=== PATIENT | female | born 2000 | race Caucasian/White ===

== ENCOUNTER 2025-03-27 20:13 | Emergency (ER) | payer SELFPAY ==
[2025-03-27 20:14] VITALS: BP 152/114; PULSE 134; RESP 15; TEMP 36.8; O2SAT 99; BMI 55.5
--- NOTE | 2025-03-27 21:09 | EX.ED.DYSGE1 ---
HPI History of Present Illness Chief Complaint: Mental Health Informant: patient Onset/Context/Timing Onset: Days Context: Gradual Onset Timing: Continuous Quality: Depressed Location: Generalized Worsened by: Nothing Relieved by: Nothing Narrative Narrative: Patient presents with depression that has been getting worse over the past few days. Patient recently moved here from [place]. Patient states she ran out of her medications. Patient states she feels as though she is not living and that she feels like she is just watching herself. Patient denies any suicidal or homicidal ideations. Patient denies any auditory or visual hallucinations. Patient states she has had a recent upper respiratory infection with cough and rhinorrhea. Patient also admits to some nausea but denies any vomiting. Patient denies any chest pain or shortness of breath. [facility] Medical History (Updated 03/28/25 @ 01:[address] Aj Noble, DO) Bipolar 1 disorder Depression Hypertension PCOS (polycystic ovarian syndrome) Home Medications ?Medication ?Instructions ?Recorded ?Last Taken ?Type oxcarbazepine 600 mg 600 mg PO DAILY #30 tabs 03/28/25 Unknown Rx tablet,extended release 24 hr sulfamethoxazole 800 1 tab PO BID #6 TABLETS 03/28/25 Unknown Rx mg-trimethoprim 160 mg tablet venlafaxine 150 mg tablet,extended 150 mg PO DAILY #30 tabs 03/28/25 Unknown Rx release 24 hr venlafaxine 37.5 mg 37.5 mg PO DAILY #30 caps 03/28/25 Unknown Rx capsule,extended release 24 hr Allergy/AdvReac Type Severity Reaction Status Date / Time No Known Allergies Allergy Verified 03/27/25 20:14 Surgical History no surgical history no surgical history Social History (Updated 03/27/25 @ 21:40 by Tiki Pavon) household members: spouse and family housing: house Smoking Status: Current every day smoker tobacco type: cigarettes ROS ROS ED Constitutional Constitutional ED: Denies chills or fever(s) Eyes Eyes: Denies blurry vision or change in vision ENT ENT ED: Reports rhinorrhea; Denies sore throat Cardiovascular Cardiovascular: Denies chest pain or palpitations Respiratory/Chest Respiratory/Chest: Reports cough; Denies dyspnea Gastrointestinal Gastrointestinal: Reports nausea; Denies vomiting Genitourinary Genitourinary ED: Denies dysuria or hematuria Musculoskeletal Musculoskeletal: Denies back pain or neck pain Integumentary Denies abscess or rash Neurologic Neurologic: Reports headache(s); Denies weakness Psychiatric Psychiatric: Reports depression; Denies suicidal ideation or suicidal thoughts Allergic/Immunologic Allergic/Immunologic ED: Denies mouth swelling or urticaria EXAM Physical Exam Const Vital Signs: 03/27/25 20:14 03/27/25 21:14 03/27/25 21:17 Temperature 98.3 F 98.9 F 98.9 F Temperature Source Oral Oral Oral Pulse Rate 134 H 119 H 117 H Respiratory Rate 15 14 14 Blood Pressure 152/114 H 148/111 H 148/111 H Blood Pressure Mean 126 123 123 Pulse Ox 99 99 99 Oxygen Delivery Method Room Air Room Air Room Air 03/27/25 22:00 03/27/25 23:00 Temperature 98.9 F Temperature Source Oral Pulse Rate 117 H 116 H Respiratory Rate 18 18 Blood Pressure 132/86 H 151/88 H Blood Pressure Mean 101 109 Pulse Ox 99 99 Oxygen Delivery Method Room Air Room Air Positive well nourished and well developed Constitutional Narrative: BMI is 55.5 General Appearance ED: well developed and NAD HEENT Reports moist mucous membranes Neck supple and no JVD Resp normal respiratory effort and clear to auscultation bilaterally Cardio regular rate and regular rhythm GI non-tender and non-distended Palpation: soft Neuro oriented x3, CN's II-XII intact bilaterally and no sensory deficits noted Sensorium / Orientation: alert Motor Exam: strength 5/5 throughout Psych Mood & Affect: depressed MDM MDM MDM Narrative Medical decision making narrative: Differential diagnosis includes pneumonia, bronchitis, viral upper respiratory infection, anemia, electrolyte abnormality, urinary tract infection, depression, and anxiety. CBC will be obtained to assess for leukocytosis and anemia. Basic metabolic profile will be obtained to assess for electrolyte abnormality and renal function. Urinalysis will be obtained to assess for urinary tract infection and hematuria. Serum hCG will be obtained to assess for . Serum alcohol level will be obtained to assess for alcohol intoxication. Urine drug screen will be obtained to assess for substance abuse. Chest x-ray will be obtained to assess for pneumonia and bronchitis. History & Record Review Additional record(s) reviewed:: No prior records Lab Data Attestation: I reviewed the patient's lab results. Lab results narrative: CBC was reviewed. There is a slight leukocytosis of 12.2. The remainder is within normal limits. Basic metabolic profile was reviewed. Glucose was slightly elevated at 140. The remainder is within normal limits. Urinalysis was reviewed. Leukocyte esterase was 500. There are 10-25 white blood cells and 1+ bacteria. Urine drug screen was reviewed and was positive for opiates. Serum alcohol level was reviewed and was less than 10.1. Labs: Laboratory Results - last 24 hr 03/27/25 03/27/25 21:40 22:20 WBC 12.2 H RBC 5.72 H Hgb 11.8 L Hct 39.9 MCV 69.8 L MCH 20.6 L MCHC 29.6 L RDW Std Deviation 38.7 RDW Coeff of Jennifer 15.9 H Plt Count 346 MPV 10.6 Immature Gran % (Auto) 0.400 Neut % (Auto) 74.2 H Lymph % (Auto) 18.5 L [place] % (Auto) 4.3 Eos % (Auto) 2.2 Baso % (Auto) 0.4 Absolute Neuts (auto) 9.0 H Absolute Lymphs (auto) 2.25 Nucleated RBC % 0 Sodium 136 Potassium 4.4 Chloride 101 Carbon Dioxide 22.3 Anion Gap 13 BUN 12 Creatinine 0.84 Estim Creat Clear Calc 175.97 Est GFR (MDRD) Non-Af 99 BUN/Creatinine Ratio 14.1 Glucose 140 H Calcium 9.9 Urine Color Yellow Urine Clarity Sl. Cloudy Urine pH 6.0 Ur Specific [place] 1.025 Urine Protein 30 H Urine Glucose (UA) Normal Urine Ketones Negative Urine Occult Blood 10 H Urine Nitrite Negative Urine Bilirubin Negative Urine Urobilinogen Normal Ur Leukocyte Esterase 500 H Urine RBC 0 SEEN Urine WBC 10-25 SEEN Ur Squamous Epith Cells 0-5 SEEN Calcium Oxalate Crystal 2+ Urine Bacteria 1+ Urine Mucus 0 SEEN Urine Opiates Screen PRESUMPTIVE POSITIVE U Buprenorphine Qual NEGATIVE Ur Oxycodone Screen NEGATIVE Urine Methadone Screen NEGATIVE Urine Fentanyl Screen NEGATIVE Ur Barbiturates Screen NEGATIVE Ur Phencyclidine Scrn NEGATIVE Ur Amphetamines Screen NEGATIVE U Benzodiazepines Scrn NEGATIVE Urine Cocaine Screen NEGATIVE U Cannabinoids Screen NEGATIVE Ethyl Alcohol < 10.1 Radiography Chest X-Ray - ED: 1 View, Read by ED Physician, Read by Radiologist and No Acute Disease Diagnostic Testing: Clinical Impression(s) from Imaging Studies Chest X-Ray 03/27/25 21:49 IMPRESSION: No Acute Findings. Reading Location: [facility] Portable 1 view chest x-ray was obtained. On my independent interpretation, lung vargas are clear. There is normal cardiac silhouette. Bony thorax is normal. There is no acute process noted. Radiologist also interpreted the x-ray and agrees. Treatment and Re-Evaluation :: Patient was advised of her findings. Patient was given a dose of Bactrim here. Patient was given prescription for Bactrim. Crisis counselor was in to evaluate the patient and felt patient could be discharged safely home. I agree with this. Patient was given prescriptions for her venlafaxine and oxcarbazepine. Patient will follow-up with the crisis counseling center in 1 to 2 weeks. Patient understood and was agreeable with the plan. All questions were answered. Discharge Plan Triage Chief Complaint: Mental Health ED Provider: Aj Noble Dx/Rx/DC Orders Clinical Impression: Urinary tract infection, Depression Instructions: ED Depression, ED Cystitis Female Adult Prescriptions: New sulfamethoxazole-trimethoprim 800-160 mg tablet 1 tab PO BID Qty: 6 0RF venlafaxine 150 mg tablet extended release 24hr 150 mg PO DAILY Qty: 30 0RF Continued venlafaxine 37.5 mg capsule,extended release 24hr 37.5 mg PO DAILY Qty: 30 0RF oxcarbazepine 600 mg tablet extended release 24 hr 600 mg PO DAILY Qty: 30 0RF Rx Instructions: must be taken on empty stomach; no food at least 2 hrs before or 1 hr after dose Primary Care Provider: Care Physician,No Primary Referrals: Counseling,Center [Group of Physicians] - 1-2 Weeks Care Physician,No Primary [Primary Care Provider] - Print Language: Taiwanese Disposition Disposition: Home, Self Care
[2025-03-27 21:14] VITALS: BP 148/111; PULSE 119; RESP 14; TEMP 37.2; O2SAT 99
[2025-03-27 21:17] VITALS: BP 148/111; PULSE 117; RESP 14; TEMP 37.2; O2SAT 99
--- NOTE | 2025-03-27 21:49 | RAD_ITS ---
PROCEDURE: CHEST 1 VIEW (PORTABLE) 03/27/2025 REASON FOR EXAM: COUGH TECHNIQUE: Frontal view of the chest. COMPARISON: None FINDINGS: Hardware: None Heart: The heart size is normal. Lungs: The lungs are clear. Bones: The bones are unremarkable. Other: RAD/Chest 1 View (Portable) IMPRESSION: No Acute Findings. Reading Location: [facility]
[2025-03-27 22:00] VITALS: BP 132/86; PULSE 117; RESP 18; TEMP 37.2; O2SAT 99
[2025-03-27 22:00] LABS: Absolute Lymphocyte Count 2.25 X10^3/uL (0.83-4.51); Basophil# 0.05 X10^3/uL; Basophil% 0.4 % (0-1); Eosinophil# 0.27 X10^3/uL; Eosinophils% 2.2 % (0-5); Hematocrit 39.9 % (37-47); Hemoglobin 11.8 g/dL (12.0-15.0); Lymphocyte # 2.25 X10^3/ul (0.83-4.51); Lymphocyte % 18.5 % (19-41); Mean Corp Hgb Conc 29.6 g/dL (32-36); Mean Corpuscular Hgb 20.6 pg (27.0-32.0); Mean Corpuscular Volume 69.8 fL (81-99); Mean Platelet Vol. 10.6 fl (6.2-12.0); Monocyte# 0.53 X10^3/uL; Monocyte% 4.3 % (0-10); NRBC Flagged by Analyzer 0 % (0-5); Neutrophil # 9.04 X10^3/uL (2.7-7.7); Neutrophil % 74.2 % (47-70); Platelet Count 346 K/mm3 (150-450); RBC Distribution Width CV 15.9 % (11.6-14.6); RBC Distribution Width SD 38.7 fl (35.1-43.9); Red Blood Count 5.72 M/mm3 (4.2-5.4); White Blood Count 12.2 K/mm3 (4.4-11.0)
[2025-03-27 22:19] LABS: Alcohol, Blood (Medical)-Serum < 10.1 mg/dL (<=10.0); Anion Gap 13 (5-15); BUN 12 mg/dL (4-19); BUN/Creat Ratio 14.1 RATIO (10-20); Calcium,Total 9.9 mg/dL (7.6-11.0); Carbon Dioxide 22.3 mmol/L (21.0-32.0); Chloride 101 mmol/L (98-108); Creatinine, Serum 0.84 mg/dL (0.70-1.20); EST Glomerular Filtration Rate 99 (>60); Estimated Creatinine Clearance 175.97 ml/min (50-250); Glucose 140 mg/dL (70-99); Potassium 4.4 mmol/L (3.3-5.1); Sodium Level 136 mmol/L (133-145)
[2025-03-27 22:38] LABS: Mucous, Urine 0 SEEN /hpf (<or=2+); Red Blood Cells-Urine 0 SEEN /hpf (0-5)
[2025-03-27 22:41] LABS: Color, Urine Yellow (Yellow); Glucose, Dipstick Normal (Normal); Ketone-Dipstick Negative (Negative); Leukocyte Esterase-Dipstick 500 /ul (Negative); Nitrite-Dipstick Negative (Negative); Occult Blood-Urine 10 /ul (Negative); Protein-Dipstick 30 mg/dl (Negative); Specific Gravity, Urine 1.025 (1.002-1.030); Urine Bilirubin Dipstick Negative (Negative); Urine Clarity Sl. Cloudy (Clear); Urine Urobilinogen Normal (Normal)
[2025-03-27 22:52] LABS: Bacteria 1+ /hpf (None Seen); Calcium Oxalate Crystals Ur 2+ /hpf (<or=2+); Squamous Epithelial Cells - UA 0-5 SEEN /hpf (5-10); White Blood Cells 10-25 SEEN /hpf (0-5)
[2025-03-27 23:00] VITALS: BP 151/88; PULSE 116; RESP 18; O2SAT 99
[2025-03-27 23:10] LABS: Amphetamine Urine NEGATIVE (<1000 ng/mL); Barbiturate Urine NEGATIVE (< 200 ng/mL); Benzodiazepine Urine NEGATIVE (< 200 ng/mL); Buprenorphine Urine NEGATIVE (< 200 ng/mL); Cocaine Urine NEGATIVE (< 300 ng/mL); Fentanyl, Urine NEGATIVE; Methadone Urine NEGATIVE (< 300 ng/mL); Opiates Urine PRESUMPTIVE POSITIVE (< 300 ng/mL); Oxycodone, Urine NEGATIVE (< 100 ng/mL); PCP Urine NEGATIVE (< 25 ng/mL); THC Urine NEGATIVE (< 50 ng/mL)
[2025-03-27] MEDS: Smz/Tmp Ds Tablet 1 TABLET PO (23:16)
--- NOTE | 2025-03-27 23:22 | PCA ---
CHART FAXED, CRISIS CALLED
[2025-03-28 01:18] VITALS: BP 148/81; PULSE 116; RESP 16; TEMP 36.7; O2SAT 98
== END 2025-03-28 01:19 | disposition home or self-care (01) ==
PROVIDERS: Emergency Provider Emergency Medicine; Referring Provider Emergency Medicine; Visit Provider Emergency Medicine
DX: N39.0 Urinary tract infection, site not specified (principal); F31.9 Bipolar disorder, unspecified; I10 Essential (primary) hypertension; R73.9 Hyperglycemia, unspecified; R05.9 Cough, unspecified; R11.0 Nausea; R51.9 Headache, unspecified; F17.210 Nicotine dependence, cigarettes, uncomplicated; Z79.899 Other long term (current) drug therapy
CPT/HCPCS: 71045; 80048; 80307; 81001; 82077; 85025; 99282